=== PATIENT | female | born 1955 | race Caucasian/White ===

== ENCOUNTER 2016-11-04 05:45 | Day surgery (SDC) | payer BC ==
[~2016-11-04] VITALS: Ht 152.4 cm; Wt 68.2 kg
[2016-11-04] VITALS (13 sets, daily range): BP systolic 90–123; BP diastolic 47–65; PULSE 50–66; RESP 10–25
[~2016-11-04 05:45] MED LIST: ASPI81TA3 PO; ATOR40TA68 PO; EZET10TA3 PO; PANT20TA3 PO; PROP20TA4 PO; PUMP INSULIN MC; RALO60TA12 PO; SYN75 PO; TEMA30CA6 PO; TOPI25CA PO
[2016-11-04] MEDS ORDERED: MIDAZOLAM 1 MG/ML 2 ML INJ ONE (07:11)
[2016-11-04] MEDS ORDERED: FENTAnyl 50 MCG/ML VIAL ONE (07:11)
[2016-11-04] MEDS ORDERED: ROPIVACAINE 0.5 % 30 ML VIAL ONE (07:12)
--- NOTE | 2016-11-04 07:43 | HPN ---
Date/Time of Note Date/Time of Note DATE: 11/04/16 TIME: 07:43 Interval H&P Admission Note Pt. seen H&P reviewed: No system changes JOE LIU MD Nov 04, 2016 07:43
[2016-11-04] MEDS ORDERED: LIDOCAINE 2% (SDV) 5 ML INJ ONE (08:13)
[2016-11-04] MEDS ORDERED: PROPOFOL 20 ML ONE (08:13)
[2016-11-04] MEDS ORDERED: ROCURONIUM 50 MG INJ ONE ×3 (08:13→09:46)
[2016-11-04] MEDS ORDERED: DEXAMETHASONE 4 MG/ML 1 ML INJ ONE (08:14)
[2016-11-04] MEDS ORDERED: POLYMYXIN/BACITRACIN 1L IRRIG ONE (08:14)
[2016-11-04] MEDS ORDERED: SUGAMMADEX SODIUM 200 MG/2 ML VIAL IV ONE (09:41)
[2016-11-04] MEDS ORDERED: ONDANSETRON 4 MG INJ ONE (09:44)
[2016-11-04] MEDS ORDERED: INSULIN ASPART [NOVOLOG] 3 ML PEN SC ONE (10:00)
[2016-11-04] MEDS ORDERED: HYPOGLYCEMIA PROTOCOL when Glucose is <70 mg/dL or symptomatic <90 mg/dL. XX ONE (10:00)
[2016-11-04] MEDS ORDERED: hydrALAzine 20 MG INJ IV PRN (10:00)
[2016-11-04] MEDS ORDERED: ONDANSETRON 4 MG INJ IV PRN (10:00)
[2016-11-04] MEDS ORDERED: FENTAnyl 50 MCG/ML VIAL IV PRN ×3 (10:00)
[2016-11-04] MEDS ORDERED: METOCLOPRAMIDE 10 MG INJ IV PRN (10:00)
[2016-11-04] MEDS ORDERED: LABETALOL HCL 20MG INJ IV PRN (10:00)
[2016-11-04] MEDS ORDERED: MEPERIDINE 25 MG INJ IV PRN (10:00)
[2016-11-04] MEDS ORDERED: OXYCODONE/ACETAMINOPHEN (5/325) TAB PO PRN ×2 (10:00)
[2016-11-04] MEDS ORDERED: HYDROmorphONE (0.2 MG/ML) 10ML SYG IV PRN ×2 (10:00)
[2016-11-04] MEDS ORDERED: DIPHENHYDRAMINE 50 MG INJ IV PRN (10:00)
[2016-11-04] MEDS ORDERED: EPHEDrine SULFATE 50 MG/5 ML SYG IV PRN (10:00)
[2016-11-04] MEDS ORDERED: KETOROLAC 30 MG INJ IV PRN (10:00)
--- NOTE | 2016-11-04 10:22 | OPR ---
Date/Time of Note Date/Time of Note DATE: 11/04/16 TIME: 10:12 Operative Report Procedure Date: Nov 04, 2016 Preoperative Diagnosis Right lateral malleolus fracture displaced Postoperative Diagnosis Right lateral malleolus fracture displaced, [place] B Operation Performed Open reduction Internal fixation of Right lateral malleolus fracture displaced Surgeon Javier Liu MD Anesthesia Type: general, other (popliteal block) Anesthesiologist: SHARI DURANT MD Tourniquet Time: 60 min at 250 mm Hg Estimated Blood Loss: 0 - 10 ml's Transfusion Required: no Specimen: none Grafts/Implants Arthrex Fibulock Nail 130 x 3.2 2.7 x 16 mm Cortical screw Complications: no Pt Condition Post Procedure: stable Disposition: PACU Indications Patient is a 61-year-old female who sustained a right lateral malleolus ankle fracture with medial clear space widening that was concerning for a syndesmotic injury as well as a displaced lateral malleolus fracture was indicated for surgery. Risk Note: Patient was explained the risks and benefits of surgery and the patient's [facility] language including not limited to infection, bleeding, injury to blood vessels, nerves, ligaments or tendons. Risks of anesthesia, deep vein thrombosis and need for reduce future surgery. Patient acknowledged these risk by signing the surgical consent form. Procedure Description Patient was met in the preoperative holding area and the correct operative summary was confirmed with the patient and consent and marked accordingly. Patient was then given preoperative regional block anesthesia and antibiotics. Patient was then prepped and draped in the normal sterile fashion and a timeout was taken. Patient was brought to the operative theater and placed supine on operative table. All parties in the room agreed it was patient, extremity and procedure. Tourniquet was brought up to 250 mmHg. Incision was made over the fibular fracture and hematoma and callus was debrided. The fracture was then reduced and shown to be in perfect reduction both on the AP oblique and lateral position. The entry point of the nail was established using 1.6 m millimeter K wire. This was done under fluoroscopy under both anterior and lateral to ensure that the K wire was in the center of the canal. Once the K wire was well positioned. A 6.2 mm reamer was then used to start the opening part of the remaining part in the canal and driven up past the fracture site. While the fracture was being held in reduction. Then proximal reaming was done with a 3.2 mm reamer over the guidewire and through the tissue protector into the depth indicator collar is within the bone. The outrigger was assembled with the nail in it so that the nail shaft angled upwards toward yet regular. The nail which was a 3.0130 mm Arthrex Fibulock nail was then inserted. This was done under fluoroscopy to ensure that the end of the case K wire part was shown to be at the tip of the fibula which was buried appropriately. The distal syndesmotic screw hole was also identified to be appropriately buried at the right site. The nail was then accentuated once it was shown to be in the appropriate anterior and lateral position. And the talons were released. The nail was then locked distally with a 16 x 3.5 mm cortical screw. A manual external rotation stress test was done and shown to be no syndesmotic widening. The end cap was then placed at the distal portion of the nail To fully seat the end cap Once this was done the nail was shown to be in excellent position and the fracture to be in excellent position with the fracture brought out to both length alignment and rotation appropriately. All wounds were irrigated thoroughly and the wounds were closed in layers with 2 -0 Vicryl followed by a 3-0 Monocryl and a 4-0 Monocryl in a running fashion and dressed with Steri-Strips. The wound was dressed with Xeroform, triple antibiotic ointment and placed in a well-padded short leg splint with 5 ABDs and 5 Webrils. At the end the case all sponge needle counts were correct. Patient brought to the PACU in stable condition. Her toes are warm and well- perfused. JAVIER LIU MD Nov 04, 2016 10:22
[2016-11-04] MEDS ORDERED: GLUCOSE GEL 15 GRAM TUBE PO PRN ×2 (10:30)
[2016-11-04] MEDS ORDERED: morphine 2 MG INJ IV PRN (10:30)
[2016-11-04] MEDS ORDERED: DEXTROSE 50% 50 ML SYRINGE IV PRN ×2 (10:30)
[2016-11-04] MEDS ORDERED: GLUCOSE GEL 15 GRAM TUBE BUCCAL PRN (10:30)
[2016-11-04] MEDS ORDERED: GLUCAGON 1 MG INJ IM PRN (10:30)
[2016-11-04] MEDS ORDERED: PT'S OWN INSULIN PUMP SC SCH (11:30)
--- NOTE | 2016-11-04 11:37 | RADRPT ---
PROCEDURE: Intraoperative imaging of the right ankle with fluoroscopy. CLINICAL INDICATION: Right ankle pain. Intraoperative. TECHNIQUE: 36 images of the right ankle were obtained in the operating room with an image intensif ier. No radiologist was in attendance. Fluoroscopy time is 106 seconds. COMPARISON: No prior study is available for comparison. FINDINGS: Surgical instruments are noted overlying the right ankle. Images demonstrate open reduction and internal fixation of the distal fibula with an intramedullary any and a single screw. IMPRESSION: 1. Intraoperative imaging of the right ankle. RPTAT: QQ .Ralph Cheung MD, MD Date Time Electronically viewed and signed by .Ralph Cheung MD, on 11/04/2016 11:37 .R/
== END 2016-11-04 11:29 | disposition home or self-care (01) ==
LOC: SDS 05:45
PROVIDERS: ATTEND Orthopaedic Surgery
DX: S82.61XA Displaced fracture of lateral malleolus of right fibula, initial encounter for closed fracture (principal); S82.61XD Displaced fracture of lateral malleolus of right fibula, subsequent encounter for closed fracture with routine healing; X58.XXXD Exposure to other specified factors, subsequent encounter; E03.9 Hypothyroidism, unspecified; E11.9 Type 2 diabetes mellitus without complications
CPT/HCPCS: 27792; 73610; 82306; 82962; J1100; J1170; J1885; J2250; J2405; J2795; J3010; J1815